=== PATIENT | male | born 1960 ===

== ENCOUNTER → 2019-02-03 | Outpatient (CLI) | payer BC, OTHER ==
[~2019-02-03] MED LIST: ASPI81CH PO; CYCL10 PO; EZET10; HYDACE5 PO; IBUP400 PO; IBUP800 PO; SIMV10 PO
== END | disposition home or self-care (01) ==
LOC: LAB SHORT 14:00 → LAB 14:00
DX: J02.9 Acute pharyngitis, unspecified (principal)
CPT/HCPCS: 87070

== ENCOUNTER → 2019-12-15 | Outpatient (CLI) | payer BC, OTHER | END | disposition home or self-care (01) | LOC: LAB 16:02 → LAB SHORT 16:02 | DX: B35.1 Tinea unguium (principal) | CPT/HCPCS: 87102; 87106 ==

== ENCOUNTER 2020-12-18 11:04 | Day surgery (SDC) | payer BC ==
[~2020-12-18] VITALS: Ht 182.9 cm; Wt 96.0 kg
[2020-12-18] MEDS ORDERED: GLUC500 PO (11:27)
[2020-12-18] MEDS ORDERED: TERB250 PO (11:27)
== END 2020-12-18 12:45 | disposition home or self-care (01) ==
LOC: ORSCSDS 11:04
PROVIDERS: Internal Medicine Gastroenterology
PROC: 0DJD8ZZ Inspection of Lower Intestinal Tract, Via Natural or Artificial Opening Endoscopic (ICD-10-PCS; principal; 2020-12-18 12:30)
DX: Z12.11 Encounter for screening for malignant neoplasm of colon (principal); K57.30 Diverticulosis of large intestine without perforation or abscess without bleeding; D64.9 Anemia, unspecified; Z87.891 Personal history of nicotine dependence; Z79.82 Long term (current) use of aspirin; Z79.899 Other long term (current) drug therapy
CPT/HCPCS: J2704; J7120

== ENCOUNTER 2024-11-23 11:00 | Day surgery (SDC) | payer BC ==
[~2024-11-23] VITALS: Ht 182.9 cm; Wt 92.6 kg
[2024-11-23] VITALS (10 sets, daily range): BP systolic 136–168; BP diastolic 80–96
[~2024-11-23 11:00] MED LIST changes: +ASCO500 PO; +CeFAZolin Sodium 2,000 MG in NS 100 ML IV SCH; +ERGO50000; +GLUC500 PO; +Lactated Ringer's 1,000 ML IV SCH; +TERB250 PO
[2024-11-23] MEDS ORDERED: CeFAZolin Sodium 2,000 MG VIAL ONE (11:05)
[2024-11-23] MEDS ORDERED: Bupivacaine 0.5% HCl 5 MG/ML 30MLVIAL ONE (11:14)
--- NOTE | 2024-11-23 11:23 | NUR ---
History, Chart, Medications and Allergies reviewed before start of procedure. Patient confirms NPO status and agrees with scheduled surgery. Pre-Op teaching done. Pt verbalizes understanding. Patient reports completing Chlorhexadine shower X2 prior to admission to hospital. Lungs clear T/O to Auscultation.
[2024-11-23] MEDS ORDERED: propofoL 20 ML IV ONE (11:48)
[2024-11-23] MEDS ORDERED: Rocuronium Bromide 10 MG/ML 5ML Injection IV ONE (11:49)
[2024-11-23] MEDS ORDERED: Lidocaine HCl 2% 20 ML MDV ONE (11:49)
[2024-11-23] MEDS ORDERED: FentaNYL Citrate 50 MCG/ML 2 ML Injection ONE (11:49)
--- NOTE | 2024-11-23 11:51 | NUR ---
WEDDING RING AND GLASSES IN PT BELONGING BAG
[2024-11-23] MEDS ORDERED: Phenylephrine HCl 100 MCG/ML-NS 10MLSYR (1MG/10ML) ONE (12:06)
[2024-11-23] MEDS ORDERED: Ondansetron HCl 2 MG / ML 2ML Vial ONE (12:07)
[2024-11-23] MEDS ORDERED: Dexamethasone Sod Phos 10 MG/ML 1ML VIAL ONE (12:07)
--- NOTE | 2024-11-23 12:24 | NUR ---
11/23/24 1222 Lizzie Randle VERBALLY ORDERED BY DR. URBINA, PLACED IN A STERILE FASHON BY LIZZIE JANG. WILL BE REMOVED PRIOR TO GOING TO RECOVERY LIZZIE MESA RN 11-23-24 @[id number]
[2024-11-23] MEDS ORDERED: Ondansetron HCl 2 MG / ML 2ML Vial IV PRN (12:40)
[2024-11-23] MEDS ORDERED: Metoclopramide HCl 5MG / ML 2ML Vial IV PRN (12:40)
[2024-11-23] MEDS ORDERED: Sugammadex Sodium 200 MG/2ML SDV (100 MG/ML) ONE (13:20)
[2024-11-23] MEDS ORDERED: HYDROcodone 5-APAP 325 TAB PO PRN (13:55)
--- NOTE | 2024-11-23 14:10 | NUR ---
REPORT RECEIVED FROM ZENY JANG. VSS. PT ON RA. PT A&OX4. PT ABLE TO REPOSITION SELF IN BED. PT REQUESTING PO FOOD AND FLUIDS AND TOLERATING THEM WELL. PT HAS 3 INCISION SITES TO ABDOMEN COVERED WITH EXOFEN THAT ARE ALL CDI. PT REPORTS 5/10 ACHING PAIN TO ABDOMEN THAT IS "TOLERABLE". PT DENIES NAUSEA OR OTHER DISCOMFORTS. ICE PACK PLACED TO ABD FOR COMFORT.
--- NOTE | 2024-11-23 14:58 | NUR ---
Patient up to Ambulate independently. Gait steady. VSS AND CONSISTENT WITH PT BASELINE. PT REFUSES PAIN MEDICATION, REPORTS PAIN IS TOLERABLE AND VERBALIZES READINESS TO GO HOME. Discharge instructions reviewed with patient AND HIS SPOUSE. Patient verbalizes understanding. Copy given to patient to take home. Patient States Post-Procedure ride home has been arranged. Discharged via wheelchair to private car for ride home. PT BELONGINGS RETURNED TO PT.
== END 2024-11-23 14:50 | disposition home or self-care (01) ==
LOC: ORSCMMR 11:00 → ORD 12:15 → ORSCMMR 14:50
PROVIDERS: Surgery
PROC: 8E0W4CZ Robotic Assisted Procedure of Trunk Region, Percutaneous Endoscopic Approach (ICD-10-PCS; principal; 2024-11-23 12:15)
PROC: 0YU64JZ Supplement Left Inguinal Region with Synthetic Substitute, Percutaneous Endoscopic Approach (ICD-10-PCS; principal; 2024-11-23 12:15)
DX: K40.90 Unilateral inguinal hernia, without obstruction or gangrene, not specified as recurrent (principal); E11.9 Type 2 diabetes mellitus without complications; K21.9 Gastro-esophageal reflux disease without esophagitis; J43.9 Emphysema, unspecified; Z85.21 Personal history of malignant neoplasm of larynx
CPT/HCPCS: 82947; C1781; J0690; J1100; J2371; J2405; J2704; J3010; J7120